=== PATIENT | female | born 1995 | race American Indian/Alaskan Native ===

== ENCOUNTER 2021-10-10 16:29 | Emergency (ER) | payer SELFPAY ==
--- NOTE | 2021-10-10 17:03 | Emergency Department Report ---
ED General Adult HPI - General Chief complaint: Extremity Injury, Upper Stated complaint: LEFT ARM FEELS NUMB Time Seen by Provider: 10/10/21 16:45 Source: patient Mode of arrival: Ambulatory Limitations: No Limitations - History of Present Illness Initial comments: Patient is a 25-year-old female presents emergency room complaints of left-sided neck pain that radiates down her left arm that began earlier today. She reports that she feels a tingling numbness sensation in her left arm. She denies any weakness. She denies any fall or injury. She denies any arm swelling or skin changes. She denies ever having this in the past. Patient has a past medical history of back pain and currently sees a creative specialist. She denies any medication allergies. She states that she is currently on her menstrual cycle. Severity scale (0 -10): 8 - Related Data Previous Rx's Medication Instructions Recorded Last Taken Type Menthol/Camphor [[place] 1 applicatio TP BID #18 oint...g. 10/10/21 Unknown Rx Ointment] Naproxen 375 mg PO BID PRN #20 tablet 10/10/21 Unknown Rx Prednisone [predniSONE 10 mg 10 mg PO .TAPER #1 tab.ds.pk 10/10/21 Unknown Rx (6-Day Pack, 21 Tabs)] methOCARBAMOL [Robaxin TAB] 500 mg PO BID PRN #14 tab 10/10/21 Unknown Rx ED Review of Systems ROS: Stated complaint: LEFT ARM FEELS NUMB Other details as noted in HPI Comment: All other systems reviewed and negative ED Past Medical Hx - Past Medical History Previous Medical History?: No - Surgical History Past Surgical History?: Yes Additional Surgical History: ORAL SX X2. 2012 - Medications Home Medications: Home Medications Medication Instructions Recorded Confirmed Last Taken Type Menthol/Camphor [[place] 1 applicatio TP BID #18 oint...g. 10/10/21 Unknown Rx Ointment] Naproxen 375 mg PO BID PRN #20 tablet 10/10/21 Unknown Rx Prednisone [predniSONE 10 mg 10 mg PO .TAPER #1 tab.ds.pk 10/10/21 Unknown Rx (6-Day Pack, 21 Tabs)] methOCARBAMOL [Robaxin TAB] 500 mg PO BID PRN #14 tab 10/10/21 Unknown Rx ED Physical Exam - General Limitations: No Limitations General appearance: alert, in no apparent distress - Head Head exam: Present: atraumatic, normocephalic - Eye Eye exam: Present: normal appearance - ENT ENT exam: Present: mucous membranes moist - Neck Neck exam: Present: normal inspection, tenderness (left cervical paraspinal muscular ttp, no midline c-spine ttp, no step offs, no deformities), full ROM. Absent: meningismus - Respiratory Respiratory exam: Present: normal lung sounds bilaterally. Absent: respiratory distress, wheezes, rales, rhonchi, stridor, chest wall tenderness, accessory muscle use, decreased breath sounds, prolonged expiratory - Cardiovascular Cardiovascular Exam: Present: regular rate, normal rhythm, normal heart sounds. Absent: systolic murmur, diastolic murmur, rubs, gallop - Extremities Exam Extremities exam: Present: other (ttp to the left posterior shoulder, FROM of the LUE with discomfort upon movement, no edema, no skin changes, neurovascularly intact, no deformity) - Neurological Exam Neurological exam: Present: alert, oriented X3, CN II-XII intact, normal gait. Absent: motor sensory deficit - Psychiatric Psychiatric exam: Present: normal affect, normal mood - Skin Skin exam: Present: warm, dry, intact ED Course Vital Signs 10/10/21 10/10/21 16:31 17:21 Temperature 98.4 F Pulse Rate 85 68 Respiratory 18 15 Rate Blood Pressure 137/92 118/76 [Right] O2 Sat by Pulse 99 99 Oximetry ED Medical Decision Making - Medical Decision Making Patient is a 25-year-old female presents emergency room complaints of left-sided neck pain that radiates down her left arm that began earlier today. She reports that she feels a tingling numbness sensation in her left arm. She denies any weakness. She denies any fall or injury. She denies any arm swelling or skin changes. She denies ever having this in the past. Patient has a past medical history of back pain and currently sees a creative specialist. She denies any medication allergies. She states that she is currently on her menstrual cycle. Vitals are stable. On exam:left cervical paraspinal muscular ttp, no midline c-spine ttp, no step offs, no deformities, ttp to the left posterior shoulder, FROM of the LUE with discomfort upon movement, no edema, no skin changes, neurovascularly intact, no deformity. No focal neuro deficits. Patient is amatory without difficulty. Symptoms and examination appear likely consistent with cervical radiculopathy. Patient given prescription for medications. Advised patient Please use medication as prescribed. Follow-up with your creative specialist. Return to emergency room for any new or worsening symptoms. Critical care attestation.: If time is entered above; I have spent that time in minutes in the direct care of this critically ill patient, excluding procedure time. ED Disposition Clinical Impression: Cervical radiculopathy Disposition: HOME / SELF CARE / HOMELESS Is pt being admited?: No Does the pt Need Aspirin: No Condition: Stable Instructions: Cervical Radiculopathy Additional Instructions: Please use medication as prescribed. Follow-up with your creative specialist. Return to emergency room for any new or worsening symptoms. Prescriptions: Naproxen 375 mg PO BID PRN #20 tablet PRN Reason: pain Prednisone [predniSONE 10 mg (6-Day Pack, 21 Tabs)] 10 mg PO .TAPER #1 tab.ds.pk methOCARBAMOL [Robaxin TAB] 500 mg PO BID PRN #14 tab PRN Reason: muscle spasm/pain Menthol/Camphor [[place] Ointment] 1 applicatio TP BID #18 oint...g. Referrals: your, creative specialist [Other] - 3-5 Days Time of Disposition: 17:04 Print Language: SLOVAK
[2021-10-10 17:22] VITALS: BP 118/76
== END 2021-10-10 17:23 | disposition home or self-care (01) ==
LOC: ED 16:29
DX: M54.12 Radiculopathy, cervical region (principal); Z98.890 Other specified postprocedural states; Z79.899 Other long term (current) drug therapy
CPT/HCPCS: 99282